=== PATIENT | female | born 2000 | race Caucasian/White ===

== ENCOUNTER 2024-04-02 16:07 | Observation (INO) | payer OTHER ==
[2024-04-02 17:37] LABS: BASO % 0.6 % (0-2.0); EOS % 2.4 % (0-4.5); HEMATOCRIT 39.1 % (32.4-45.2); HEMOGLOBIN 13.1 GM/dL (10.7-15.3); LYMPH % 31.3 % (8-40); MCH 30.3 pg (25.7-33.7); MCHC 33.5 g/dl (32.0-36.0); MEAN CELL VOLUME 90.2 fl (80-96); MEAN PLT VOLUME 8.4 fl (7.5-11.1); MONO % 7.9 % (3.8-10.2); NEUT % 57.8 % (42.8-82.8); PLATELET COUNT 271 10^3/uL (134-434); RBC 4.34 M/mm3 (3.60-5.2); RDW 13.1 % (11.6-15.6); WHITE BLOOD COUNT 6.2 K/mm3 (4.0-10.0)
[2024-04-02 17:49] LABS: INR 1.08 (0.83-1.09); PROTHROMBIN TIME (PATIENT) 12.2 SEC (9.7-13.0)
[2024-04-02 17:52] LABS: ACTIVATED PTT 26.9 SECONDS (25.2-36.5)
[2024-04-02 18:21] LABS: POTASSIUM 5.2 mmol/L (3.5-5.1)
[2024-04-02 18:23] LABS: CALCIUM 8.9 mg/dL (8.5-10.1)
[2024-04-02 18:24] LABS: BLOOD UREA NITROGEN 11.2 mg/dL (7-18); MAGNESIUM 2.2 mg/dL (1.8-2.4)
[2024-04-02 18:27] LABS: CREATININE 0.9 mg/dL (0.55-1.3); PHOSPHOROUS 3.1 mg/dL (2.5-4.9)
[2024-04-02 18:28] LABS: BILIRUBIN,TOTAL 0.4 mg/dL (0.2-1)
[2024-04-02 18:29] LABS: TOT PROT 7.6 g/dl (6.4-8.2)
[2024-04-03 00:03] LABS: POTASSIUM 3.5 mmol/L (3.5-5.1)
[2024-04-03 00:05] LABS: BLOOD UREA NITROGEN 9.1 mg/dL (7-18)
[2024-04-03 00:09] LABS: CREATININE 0.9 mg/dL (0.55-1.3)
[2024-04-03 00:10] LABS: BILIRUBIN,TOTAL 0.4 mg/dL (0.2-1); TOT PROT 7.3 g/dl (6.4-8.2)
[2024-04-03] MEDS: SODIUM CHLORIDE 1,000 ML IV SCH (01:38)
[2024-04-03 01:52] VITALS: BMI 21.8
[2024-04-03 09:10] LABS: BASO % 0.7 % (0-2.0); EOS % 3.2 % (0-4.5); HEMATOCRIT 39.9 % (32.4-45.2); LYMPH % 35.7 % (8-40); MCH 29.7 pg (25.7-33.7); MCHC 32.7 g/dl (32.0-36.0); MEAN CELL VOLUME 90.7 fl (80-96); MEAN PLT VOLUME 8.3 fl (7.5-11.1); MONO % 7.4 % (3.8-10.2); PLATELET COUNT 259 10^3/uL (134-434); RBC 4.39 M/mm3 (3.60-5.2); RDW 12.9 % (11.6-15.6); WHITE BLOOD COUNT 5.8 K/mm3 (4.0-10.0)
[2024-04-03 09:28] LABS: POTASSIUM 3.9 mmol/L (3.5-5.1)
[2024-04-03 09:36] LABS: ALBUMIN 3.8 g/dl (3.4-5.0); BLOOD UREA NITROGEN 9.4 mg/dL (7-18); CALCIUM 9.2 mg/dL (8.5-10.1)
[2024-04-03 09:39] LABS: BILIRUBIN,TOTAL 0.5 mg/dL (0.2-1); CREATININE 0.7 mg/dL (0.55-1.3); PHOSPHOROUS 2.6 mg/dL (2.5-4.9)
[2024-04-03 09:40] LABS: TOT PROT 6.7 g/dl (6.4-8.2)
[2024-04-03] MEDS: BISACODYL 5 MG TABLET.DR (FP) PO ONE (15:44)
[2024-04-03] MEDS: PEG 3350/NA SULF BICARB CL/KCL 4000 ML SOLN.RECON PO ONE (16:19)
[2024-04-03 23:05] LABS: HIV INTERPRETATION NEGATIVE (NEGATIVE)
[2024-04-04 08:38] LABS: BASO % 0.8 % (0-2.0); EOS % 3.1 % (0-4.5); HEMATOCRIT 41.1 % (32.4-45.2); HEMOGLOBIN 13.9 GM/dL (10.7-15.3); LYMPH % 32.6 % (8-40); MCH 30.3 pg (25.7-33.7); MCHC 33.9 g/dl (32.0-36.0); MEAN CELL VOLUME 89.2 fl (80-96); MONO % 8.2 % (3.8-10.2); NEUT % 55.3 % (42.8-82.8); PLATELET COUNT 288 10^3/uL (134-434); RBC 4.61 M/mm3 (3.60-5.2); RDW 13.1 % (11.6-15.6); WHITE BLOOD COUNT 6.1 K/mm3 (4.0-10.0)
[2024-04-04 08:41] LABS: INR 1.14 (0.83-1.09); PROTHROMBIN TIME (PATIENT) 12.8 SEC (9.7-13.0)
[2024-04-04 09:16] LABS: ERYTHROCYTE SEDIMENTATION RATE 3 mm/hr (0-20)
[2024-04-04 09:20] LABS: CHLORIDE 106 mmol/L (98-107); POTASSIUM 3.9 mmol/L (3.5-5.1); SODIUM 139 mmol/L (136-145)
[2024-04-04 09:28] LABS: CALCIUM 9.8 mg/dL (8.5-10.1)
[2024-04-04 09:29] LABS: ANION GAP 5 mmol/L (4-13); BLOOD UREA NITROGEN 6.1 mg/dL (7-18); CO2 28 mmol/L (21-32); GLUCOSE,RANDOM 91 mg/dL (74-106)
[2024-04-04 09:31] LABS: SGPT/ALT 17 U/L (13-61)
[2024-04-04 09:32] LABS: BILIRUBIN,TOTAL 0.7 mg/dL (0.2-1); CREATININE 0.8 mg/dL (0.55-1.3); SGOT/AST 13 U/L (15-37); TOT PROT 7.2 g/dl (6.4-8.2)
[2024-04-04 09:34] LABS: ALK PHOS 72 U/L (45-117)
[2024-04-04] MEDS: HYDROCORTISONE ACETATE 25 MG/SUPP.RECT RC SCH (14:30)
[2024-04-05 09:17] VITALS: BP 118/71; PULSE 80; RESP 16; TEMP 99.1
[2024-04-05 09:36] LABS: HEMATOCRIT 39.1 % (32.4-45.2); HEMOGLOBIN 13.2 GM/dL (10.7-15.3); MCH 30.3 pg (25.7-33.7); MCHC 33.8 g/dl (32.0-36.0); MEAN CELL VOLUME 89.5 fl (80-96); PLATELET COUNT 265 10^3/uL (134-434); RBC 4.37 M/mm3 (3.60-5.2); RDW 12.8 % (11.6-15.6); WHITE BLOOD COUNT 5.7 K/mm3 (4.0-10.0)
[2024-04-05 09:59] LABS: POTASSIUM 3.7 mmol/L (3.5-5.1)
[2024-04-05 10:05] LABS: CALCIUM 9.6 mg/dL (8.5-10.1)
[2024-04-05 10:06] LABS: BLOOD UREA NITROGEN 9.4 mg/dL (7-18)
[2024-04-05 10:07] LABS: CREATININE 0.8 mg/dL (0.55-1.3)
== END 2024-04-05 11:55 | disposition home or self-care (01) ==
LOC: JER 16:07 → JERBED 19:14 → J6S 04-03 01:28
PROVIDERS: ADMIT Internal Medicine; ATTEND Internal Medicine
PROC: 0DBN8ZX Excision of Sigmoid Colon, Via Natural or Artificial Opening Endoscopic, Diagnostic (ICD-10-PCS; 2024-04-04)
PROC: 0DBP8ZX Excision of Rectum, Via Natural or Artificial Opening Endoscopic, Diagnostic (ICD-10-PCS; 2024-04-04)
PROC: 0DBB8ZX Excision of Ileum, Via Natural or Artificial Opening Endoscopic, Diagnostic (ICD-10-PCS; 2024-04-04)
PROC: 0DBM8ZX Excision of Descending Colon, Via Natural or Artificial Opening Endoscopic, Diagnostic (ICD-10-PCS; 2024-04-04)
PROC: 0DBH8ZX Excision of Cecum, Via Natural or Artificial Opening Endoscopic, Diagnostic (ICD-10-PCS; 2024-04-04)
PROC: 0DBK8ZX Excision of Ascending Colon, Via Natural or Artificial Opening Endoscopic, Diagnostic (ICD-10-PCS; principal; 2024-04-04 10:15)
DX: K51.00 Ulcerative (chronic) pancolitis without complications (principal); K62.89 Other specified diseases of anus and rectum; K64.8 Other hemorrhoids; K92.1 Melena; Z91.148 Patient's other noncompliance with medication regimen for other reason
CPT/HCPCS: 36415; 74170-TC; 76700-TC; 80048; 80053; 83735; 84100; 84703; 85025; 85027; 85610; 85651; 85730; 86140; 86704; 86803; 86850; 86900; 86901; 87340; 87389; 87517; 88305-TC; 93005; 93010; 99285-25; G0378